=== PATIENT | female | born 1995 | race Caucasian/White ===

== ENCOUNTER 2023-04-20 20:42 | Emergency (ER) | payer OTHER, SELFPAY ==
[2023-04-20 20:45] VITALS: BP 129/85; PULSE 72; RESP 22; TEMP 37.1; O2SAT 94; BMI 31.4
--- NOTE | 2023-04-20 20:52 | ED.GENADUL1 ---
HPI - General Adult General Chief complaint: Abdominal Pain Stated complaint: FLANK PAIN Time Seen by Provider: 04/20/23 20:52 Source: patient Mode of arrival: walk-in Limitations: no limitations History of Present Illness HPI narrative: Patient presents to emergency department complaining of left flank pain. Patient states symptoms started yesterday. She was seen and evaluated at [facility] had blood work, urinalysis and CT scan which showed kidney stone per the patient. Patient was given IV fluids, Toradol, and discharged on Tylenol with codeine. She states she was feeling well and in the middle of night pain came back so she returned to [facility] they did blood work at that time and he was subsequently discharged home with a Lidoderm patch. Patient states she has been taking the Tylenol with Codeine at home and the pain has increased so she comes here for reevaluation. The patient States the pain is worse. She denies any nausea, vomiting, or diarrhea. She denies any abdominal pain, hematuria, dysuria. She denies any trauma. She denies any fever, chills, or cough. She denies any chest pain, or shortness of breath.States she had pain like this on the right side when she had a kidney stone. She denies any paresthesias, or weakness. Related Data Home Medications Medication Instructions Recorded Confirmed acetaminophen 300 mg-codeine 30 mg 1 tab PO Q8H 04/20/23 04/23/23 tablet Previous Rx's Medication Instructions Recorded ondansetron 4 mg disintegrating 4 mg PO Q8H PRN nausea and 04/20/23 tablet vomiting 5 days #10 tabs tramadol 50 mg tablet 50 mg PO TID PRN pain 3 days #10 04/20/23 tabs Allergies Allergy/AdvReac Type Severity Reaction Status Date / Time acetaminophen [From Vicodin] Allergy Mild Nausea Verified 04/23/23 05:54 hydrocodone [From Vicodin] Allergy Mild Nausea Verified 04/23/23 05:54 Review of Systems ROS Status of ROS 10 or more systems reviewed and unremarkable except as noted in history and below [facility] Medical History (Updated 04/23/23 @ 07:23 by Adrian Palumbo) Social History Smoking status: Current every day smoker Exam Narrative Exam Narrative: Nurses notes and vital signs reviewed and patient is not hypoxic. General: Nontoxic, Well-appearing and in no apparent distress. Skin: Warm, dry, no pallor noted. No Rash Head: Normocephalic, atraumatic. Neck: Supple, non-tender. Eye: Pupils are equal, round and EOMI. No scleral icterus. Ears, Nose, Mouth, and Throat: TM clear, no posterior oropharynx erythema or nasal mucosal hypertrophy, uvula is mid-line Oral mucosa is moist Cardiovascular: Regular Rate and Rhythm without murmur, gallop or rub. Respiratory: No accessory muscle use or respiratory distress. Lungs are clear to auscultation, no wheezing, rales or rhonchi Chest Wall: no tenderness Back: No midline thoracic or lumbar vertebral tenderness. +L CVA tenderness Musculoskeletal: normal ROM, no calf or popliteal tenderness, no lower extremity edema/swelling GI: Abdomen is soft, non-distended. Normal bowel sounds. No masses appreciated. No tenderness to palpation. No rebound, guarding, or rigidity noted. Neurological: A&O x4. No cranial nerve dysfunction observed. No truncal ataxia. Moves all extremities. Sensation intact. Psychiatric: Cooperative and interactive. Normal mood and affect. Constitutional Vital Signs, click to edit/add: Last Vital Signs Temp 98.8 F 04/20/23 20:45 Pulse 72 04/20/23 20:45 Resp 22 04/20/23 20:45 BP 129/85 04/20/23 20:45 Pulse Ox 94 L 04/20/23 20:45 O2 Del Method Room Air 04/20/23 20:45 Course Vital Signs Vital signs: Vital Signs Temperature 98.8 F 04/20/23 20:45 Pulse Rate 72 04/20/23 20:45 Respiratory Rate 22 04/20/23 20:45 Blood Pressure 129/85 04/20/23 20:45 Pulse Oximetry 94 L 04/20/23 20:45 Oxygen Delivery Method Room Air 04/20/23 20:45 Temperature 98.8 F 04/20/23 20:45 Pulse Rate 72 04/20/23 20:45 Respiratory Rate 22 04/20/23 20:45 Blood Pressure 129/85 04/20/23 20:45 Pulse Oximetry 94 L 04/20/23 20:45 Oxygen Delivery Method Room Air 04/20/23 20:45 Medical Decision Making MDM Narrative Medical decision making narrative: Labs studies were done and are unremarkable. Patient was given 1 L of normal saline, Toradol, and morphine. Patient's pain was better controlled. All of the results were discussed with patient. KUB was done which does not show any stones or other pathology. Discussed with the patient that the CT scan findings show a 2 mm nonobstructive renal calculus in the inferior portal of the left kidney and a tiny punctate stone in the interpolar region of the left kidney, however there is no evidence of hydronephrosis or obstructive uropathy. Her urinalysis does not show any blood. There is trace leukocyte esterase but we will send it for culture. Advised the patient treatment will be pain medication so she was given a prescription for Ultram. Patient's [facility] record was Reviewed and adequate. D-dimer was done and is negative. Chest x-ray from the abdominal series looks unremarkable. Patient is not hypoxic.Patient is advised an 8 to follow-up with her primary care doctor. At this time the patient is without objective evidence of an acute process requiring hospitalization or inpatient management. The patient has remained hemodynamically stable. No additional indication for emergent studies at this time. I answered all questions. Discussed discharge instructions including standard anticipatory guidance and what should prompt a return to the emergency department, including if they get worse are not getting better or develops any new or concerning symptoms. I've given them specific time frame in which to follow-up, and who to follow-up with. The patient demonstrates understanding. Patient is nontoxic and stable for discharge with outpatient follow-up. This note was created with the assistance of a speech recognition program. Although the intention is to generate documents that actually reflects the content of the visit, no guarantees can be provided that every mistake has been identified and corrected by editing. Medical Records Medical records reviewed: Yes I reviewed the patient's medical records Medical records narrative: [facility] charts and records were reviewed and used as part of this medical decision-making. Lab Data Lab results reviewed: Yes I reviewed the patient's lab results Labs: Lab Results 04/20/23 04/20/23 Range/Units 21:00 21:38 WBC 7.7 (4.0-11.0) 10^3/uL RBC 4.17 L (4.20-5.40) 10^6/uL Hgb 12.8 (12.0-16.0) g/dL Hct 37.1 (36.0-48.0) % MCV 89.0 (81.0-99.0) fL MCH 30.7 (26.7-34.0) pg MCHC 34.5 (29.9-35.2) g/dL RDW 12.2 (11.0-15.0) % Plt Count 286 (150-450) 10^3/uL MPV 10.1 (9.5-13.5) fL Neut % (Auto) 54.2 (43.0-75.0) % Lymph % (Auto) 35.6 (20.5-60.0) % [place] % (Auto) 7.7 (1.7-12.0) % Eos % (Auto) 1.8 (0.9-7.0) % Baso % (Auto) 0.3 (0.2-2.0) % Neut # (Auto) 4.2 (1.4-6.5) 10^3/uL Lymph # (Auto) 2.7 (1.2-3.8) 10^3/uL [place] # (Auto) 0.6 (0.3-0.8) 10^3/uL Eos # (Auto) 0.1 (0.0-0.7) 10^3/uL Baso # (Auto) 0.0 (0.0-0.1) 10^3/uL Abs Immat Gran (auto) 0.03 (0.00-0.03) 10^3/uL Imm/Tot Granulo (auto) 0.4 (0.0-0.5) % D-Dimer <0.19 (<=0.59) mg/L FEU Sodium 139 (136-145) mmol/L Potassium 3.9 (3.5-5.1) mmol/L Chloride 106 (98-107) mmol/L Carbon Dioxide 25.5 (21.0-32.0) mmol/L Anion Gap 11.4 BUN 6.0 L (7.0-18.0) mg/dL Creatinine 0.71 (0.55-1.02) mg/dL Est GFR ( Amer) >60 (>=60) Est GFR (Non-Af Amer) >60 (>=60) BUN/Creatinine Ratio 8.5 Glucose 95 (74-106) mg/dL Calcium 8.6 (8.5-10.1) mg/dL Total Bilirubin 0.4 (0.2-1.0) mg/dL AST 9 L (15-37) U/L ALT 15 (14-59) U/L Alkaline Phosphatase 57 (46-116) U/L Total Protein 6.8 (6.4-8.2) g/dL Albumin 3.9 (3.4-5.0) g/dL Globulin 2.9 g/dL Albumin/Globulin Ratio 1.3 Lipase 117.0 (73.0-393.0) U/L Urine Color Lt. yellow (YELLOW) Urine Clarity Clear (CLEAR) Urine pH 6.5 (5.0-9.0) Ur Specific [place] <=1.005 A (1.005-1.025) Urine Protein Negative (NEG/TRACE) mg/dL Urine Glucose (UA) Negative (NEGATIVE) mg/dL Urine Ketones Negative (NEGATIVE) mg/dL Urine Occult Blood Negative (NEGATIVE) Urine Nitrite Negative (NEGATIVE) Urine Bilirubin Negative (NEGATIVE) Urine Urobilinogen 0.2 (0.2-1.0) EU/dL Ur Leukocyte Esterase Trace A (NEGATIVE) Urine RBC 0-2 (0-2) #/HPF Urine WBC 0-2 A (NONE SEEN) #/HPF Ur Squamous Epith Cells Few A (NONE/RARE) #/LPF Urine Crystals None seen (None Seen) #/HPF Urine Bacteria None seen (NONE SEEN) #/HPF Urine Casts None seen (NONE SEEN) #/LPF Urine Mucus None seen (NONE SEEN) Ur Culture Indicated? No Discharge Plan Discharge Chief Complaint: Abdominal Pain Clinical Impression: Acute left flank pain Patient Disposition: Home, Self-Care Time of Disposition Decision: 23:18 Condition: Good Mode of Transportation: Private Vehicle Prescriptions / Home Meds: New tramadol 50 mg tablet 50 mg PO TID PRN (Reason: pain) 3 Days Qty: 10 0RF ondansetron 4 mg tablet,disintegrating 4 mg PO Q8H PRN (Reason: nausea and vomiting) 5 Days Qty: 10 0RF No Action acetaminophen-codeine 300-30 mg tablet 1 tab PO Q8H Instructions: Flank Pain (ED) Additional Instructions: do not take tylenol #3 when taking ultram. Stand Alone Forms: Portal Instructions Referrals: ALMITA APARICIO [Primary Care Provider] - 1 week Discharge Date/Time: 04/20/23 23:56
[2023-04-20 21:10] LABS: Basophils Percent Auto 0.3 % (0.2-2.0); Eosinophils Absolute Auto 0.1 10^3/uL (0.0-0.7); Eosinophils Percent Auto 1.8 % (0.9-7.0); Hematocrit 37.1 % (36.0-48.0); Hemoglobin 12.8 g/dL (12.0-16.0); Immature Granulocytes Abs Auto 0.03 10^3/uL (0.00-0.03); Immature Granulocytes Pct Auto 0.4 % (0.0-0.5); Lymphocytes Absolute Auto 2.7 10^3/uL (1.2-3.8); Lymphocytes Percent Auto 35.6 % (20.5-60.0); Mean Corpuscular HGB Conc 34.5 g/dL (29.9-35.2); Mean Corpuscular Hemoglobin 30.7 pg (26.7-34.0); Mean Platelet Volume 10.1 fL (9.5-13.5); Monocytes Absolute Auto 0.6 10^3/uL (0.3-0.8); Monocytes Percent Auto 7.7 % (1.7-12.0); Neutrophils Absolute Auto 4.2 10^3/uL (1.4-6.5); Neutrophils Percent Auto 54.2 % (43.0-75.0); Platelet Count 286 10^3/uL (150-450); Red Blood Count 4.17 10^6/uL (4.20-5.40); Red Cell Distribution Width 12.2 % (11.0-15.0); White Blood Count 7.7 10^3/uL (4.0-11.0)
[2023-04-20] MEDS: 0.9 % SODIUM CHLORIDE 1,000 ML 1000 ML IV (21:16)
[2023-04-20] MEDS: 0.9 % SODIUM CHLORIDE 1,000 ML 999 ML IV (21:17)
[2023-04-20] MEDS: KETOROLAC TROMETHAMINE 30 MG/ML VIAL IVP (21:17)
[2023-04-20 21:19] LABS: Alanine Aminotransferase 15 U/L (14-59); Albumin Globulin Ratio 1.3; Albumin Level 3.9 g/dL (3.4-5.0); Alkaline Phosphatase 57 U/L (46-116); Anion Gap 11.4; Aspartate Amino Transferase 9 U/L (15-37); BUN Creatinine Ratio 8.5; Bilirubin Total 0.4 mg/dL (0.2-1.0); Calcium 8.6 mg/dL (8.5-10.1); Carbon Dioxide 25.5 mmol/L (21.0-32.0); Chloride 106 mmol/L (98-107); Estimated GFR (African America >60 (>=60); Estimated GFR (Non-African Ame >60 (>=60); Globulin 2.9 g/dL; Glucose 95 mg/dL (74-106); Potassium 3.9 mmol/L (3.5-5.1); Sodium 139 mmol/L (136-145); Total Protein 6.8 g/dL (6.4-8.2)
[2023-04-20] MEDS: MORPHINE SULFATE 4 MG/ML VIAL IV (21:52)
[2023-04-20 21:53] LABS: Bilirubin Urine NEGATIVE (NEGATIVE); Blood Urine NEGATIVE (NEGATIVE); Clarity Urine CLEAR (CLEAR); Color Urine LT. YELLOW (YELLOW); Glucose Urine UA NEGATIVE (NEGATIVE); Ketones Urine NEGATIVE (NEGATIVE); Leukocyte Esterase Urine TRACE (NEGATIVE); Nitrite Urine NEGATIVE (NEGATIVE); Protein Urine NEGATIVE (NEG/TRACE); Specific Gravity Urine <=1.005 (1.005-1.025); Urobilinogen Urine 0.2 EU/dL (0.2-1.0); pH Urine 6.5 (5.0-9.0)
[2023-04-20 22:01] LABS: D Dimer <0.19 mg/L FEU (<=0.59)
[2023-04-20 22:01] LABS: Urine Microscopic Indicated YES
--- NOTE | 2023-04-20 22:05 | XR_ITS ---
The [address] [address] Patient Name: LUKE CALDERON MRN: [id number] date: 1995 Sex: F Assigned Patient Location: ER Current Patient Location: ED.MAIN Accession/Order Number: [id number] Exam Date: 04/20/2023 22:50 Report Date: 04/20/2023 23:24 At the request of: IMANI TALAVERA Procedure: XR acute abdomen series EXAM: XR acute abdomen series HISTORY: Abdominal pain and nausea COMPARISON: None. TECHNIQUE: PA chest and 2 views of the abdomen FINDINGS: The lung parenchyma is free of consolidation or infiltrate. No pneumothorax or pleural effusion. The cardiac, mediastinal and hilar contours are normal. The bowel gas pattern is nonobstructed. Stool burden is normal. No visualized intra-abdominal calcification. IUD within the deep pelvis The visualized osseous structures are normal. XR/XR acute abdomen series IMPRESSION: No visualized abnormality Electronically authenticated by: RAÚL JEFFRIES Date: 04/20/2023 23:24
[2023-04-20 22:07] LABS: Bacteria Urine NONE SEEN #/HPF (NONE SEEN); Cast Seen? NONE SEEN #/LPF (NONE SEEN); Crystals Seen? None Seen #/HPF (None Seen); Mucus Urine NONE SEEN (NONE SEEN); RBC Urine 0-2 #/HPF (0-2); Squamous Epithelial Cell Urine FEW #/LPF (NONE/RARE); Urine Culture Indicated NO; WBC Urine 0-2 #/HPF (NONE SEEN)
[2023-04-20] MEDS: TRAMADOL HCL 50 MG TABLET PO (23:46)
== END 2023-04-20 23:56 | disposition home or self-care (01) ==
PROVIDERS: Emergency Provider Emergency Medicine; PCP Family Medicine
DX: R10.9 Unspecified abdominal pain (principal); F17.210 Nicotine dependence, cigarettes, uncomplicated
CPT/HCPCS: 36415; 74022; 80053; 81001; 83690; 85025; 85378; 96374; 96375; 99285

== ENCOUNTER 2023-04-23 05:44 | Emergency (ER) | payer OTHER, SELFPAY ==
[2023-04-23 05:49] VITALS: BP 90/60; PULSE 69; RESP 18; TEMP 36.6; O2SAT 97; BMI 31.3
--- NOTE | 2023-04-23 06:02 | ED_ITS ---
Documented by User: Stephen Carl MD 04/24/23 06:45 HPI - General Adult General Chief complaint: Back Pain/Injury Stated complaint: FLANK PAIN, LEFT SIDE Time Seen by Provider: 04/23/23 06:02 Source: patient Mode of arrival: walk-in Limitations: no limitations History of Present Illness HPI narrative: patient states she was found to have left sided kidney stones this past weekend. was seen at [facility] and then here the next day. now presents here this AM complaining of pain again and mild nausea. No fever. Onset (ago): day(s) Related Data Home Medications Medication Instructions Recorded Confirmed acetaminophen 300 mg-codeine 30 mg 1 tab PO Q8H 04/20/23 04/23/23 tablet Previous Rx's Medication Instructions Recorded ondansetron 4 mg disintegrating 4 mg PO Q8H PRN nausea and 04/20/23 tablet vomiting 5 days #10 tabs tramadol 50 mg tablet 50 mg PO TID PRN pain 3 days #10 04/20/23 tabs tramadol 50 mg tablet 50 mg PO TID PRN pain 3 days #10 04/23/23 tabs Allergies Allergy/AdvReac Type Severity Reaction Status Date / Time acetaminophen [From Vicodin] Allergy Mild Nausea Verified 04/23/23 05:54 hydrocodone [From Vicodin] Allergy Mild Nausea Verified 04/23/23 05:54 Review of Systems ROS Status of ROS 10 or more systems reviewed and unremarkable except as noted in history and below [facility] Medical History (Updated 04/23/23 @ 07:23 by Adrian Palumbo) Social History Smoking status: Current every day smoker Exam Constitutional Vital Signs, click to edit/add: Last Vital Signs Temp 97.8 F 04/23/23 09:48 Pulse 62 04/23/23 09:48 Resp 16 04/23/23 09:48 BP 104/67 04/23/23 09:48 Pulse Ox 100 04/23/23 09:48 O2 Del Method Room Air 04/23/23 09:48 Documenting provider has reviewed patient's vital signs: yes Common normals: no apparent distress (patient rocking back and forth complaining of left flank pain ), average body habitus, oriented x3, healthy appearing and alert Eye Common normals: EOMs intact bilaterally and conjunctivae normal Respiratory Common normals: normal respiratory effort, no retractions, no use of accessory muscles and clear to auscultation bilaterally GI Common normals: Normal to inspection, nondistended, normoactive bowel sounds present Other: left flank tenderness Extremity Common normals: normal to inspection and full ROM Neuro Common normals: oriented x3, CN's II-XII intact bilaterally, moves all extremities and no focal motor deficits Psych Appearance: grossly normal Course Vital Signs Vital signs: Vital Signs Temperature 98 F 04/23/23 05:49 Pulse Rate 69 04/23/23 05:49 Respiratory Rate 18 04/23/23 05:49 Blood Pressure 90/60 04/23/23 05:49 Pulse Oximetry 97 04/23/23 05:49 Oxygen Delivery Method Room Air 04/23/23 05:49 Temperature 97.8 F 04/23/23 09:48 Pulse Rate 62 04/23/23 09:48 Respiratory Rate 16 04/23/23 09:48 Blood Pressure 104/67 04/23/23 09:48 Pulse Oximetry 100 04/23/23 09:48 Oxygen Delivery Method Room Air 04/23/23 09:48 Medical Decision Making MDM Narrative Medical decision making narrative: patient presents complaining of left flank pain. States she was seen at [facility] this past weekend and found to have kidney stones. States past history of stones. IV established and patient hydrated with normal saline. labs ordered as well as medications for pain. CT report from [facility] obtained and reads the right kidney , the bilateral ureters and urinary blader appears unremarkable. There is a 2mm nonobstructive renal calculus inferior pole left kidney. Labs have returned as normal so far. UA result pending. Care transferred to oncoming physician at change of shift Lab Data Labs: Lab Results 04/23/23 Range/Units 06:00 WBC 6.8 (4.0-11.0) 10^3/uL RBC 3.87 L (4.20-5.40) 10^6/uL Hgb 12.0 (12.0-16.0) g/dL Hct 34.6 L (36.0-48.0) % MCV 89.4 (81.0-99.0) fL MCH 31.0 (26.7-34.0) pg MCHC 34.7 (29.9-35.2) g/dL RDW 12.1 (11.0-15.0) % Plt Count 259 (150-450) 10^3/uL MPV 10.0 (9.5-13.5) fL Neut % (Auto) 54.5 (43.0-75.0) % Lymph % (Auto) 32.6 (20.5-60.0) % [place] % (Auto) 10.0 (1.7-12.0) % Eos % (Auto) 2.1 (0.9-7.0) % Baso % (Auto) 0.4 (0.2-2.0) % Neut # (Auto) 3.7 (1.4-6.5) 10^3/uL Lymph # (Auto) 2.2 (1.2-3.8) 10^3/uL [place] # (Auto) 0.7 (0.3-0.8) 10^3/uL Eos # (Auto) 0.1 (0.0-0.7) 10^3/uL Baso # (Auto) 0.0 (0.0-0.1) 10^3/uL Abs Immat Gran (auto) 0.03 (0.00-0.03) 10^3/uL Imm/Tot Granulo (auto) 0.4 (0.0-0.5) % Sodium 138 (136-145) mmol/L Potassium 3.6 (3.5-5.1) mmol/L Chloride 103 (98-107) mmol/L Carbon Dioxide 25.3 (21.0-32.0) mmol/L Anion Gap 13.3 BUN 11.0 (7.0-18.0) mg/dL Creatinine 0.75 (0.55-1.02) mg/dL Est GFR ( Amer) >60 (>=60) Est GFR (Non-Af Amer) >60 (>=60) BUN/Creatinine Ratio 14.7 Glucose 101 (74-106) mg/dL Calcium 8.6 (8.5-10.1) mg/dL Urine Color Lt. yellow (YELLOW) Urine Clarity Clear (CLEAR) Urine pH 7.5 (5.0-9.0) Ur Specific [place] 1.010 (1.005-1.025) Urine Protein Negative (NEG/TRACE) mg/dL Urine Glucose (UA) Negative (NEGATIVE) mg/dL Urine Ketones Negative (NEGATIVE) mg/dL Urine Occult Blood Negative (NEGATIVE) Urine Nitrite Negative (NEGATIVE) Urine Bilirubin Negative (NEGATIVE) Urine Urobilinogen 0.2 (0.2-1.0) EU/dL Ur Leukocyte Esterase Negative (NEGATIVE) Urine HCG, Qual Negative (NEGATIVE) Discharge Plan Discharge Chief Complaint: Back Pain/Injury Clinical Impression: Acute left flank pain Patient Disposition: Home, Self-Care Time of Disposition Decision: 09:31 Condition: Good Mode of Transportation: Private Vehicle Prescriptions / Home Meds: New tramadol 50 mg tablet 50 mg PO TID PRN (Reason: pain) 3 Days Qty: 10 0RF No Action acetaminophen-codeine 300-30 mg tablet 1 tab PO Q8H tramadol 50 mg tablet 50 mg PO TID PRN (Reason: pain) 3 Days Qty: 10 0RF ondansetron 4 mg tablet,disintegrating 4 mg PO Q8H PRN (Reason: nausea and vomiting) 5 Days Qty: 10 0RF Instructions: Flank Pain (ED) Stand Alone Forms: Portal Instructions Referrals: ALMITA APARICIO [Primary Care Provider] - 1 week Discharge Date/Time: 04/23/23 09:52 Documented by User: Gail Salcido MD 04/23/23 09:36 HPI - General Adult General Chief complaint: Back Pain/Injury Stated complaint: FLANK PAIN, LEFT SIDE Time Seen by Provider: 04/23/23 06:02 Related Data Home Medications Medication Instructions Recorded Confirmed acetaminophen 300 mg-codeine 30 mg 1 tab PO Q8H 04/20/23 04/23/23 tablet Previous Rx's Medication Instructions Recorded ondansetron 4 mg disintegrating 4 mg PO Q8H PRN nausea and 04/20/23 tablet vomiting 5 days #10 tabs tramadol 50 mg tablet 50 mg PO TID PRN pain 3 days #10 04/20/23 tabs tramadol 50 mg tablet 50 mg PO TID PRN pain 3 days #10 04/23/23 tabs Allergies Allergy/AdvReac Type Severity Reaction Status Date / Time acetaminophen [From Vicodin] Allergy Mild Nausea Verified 04/23/23 05:54 hydrocodone [From Vicodin] Allergy Mild Nausea Verified 04/23/23 05:54 [facility] Medical History (Updated 04/23/23 @ 07:23 by Adrian Palumbo) Social History Smoking status: Current every day smoker Exam Constitutional Vital Signs, click to edit/add: Last Vital Signs Temp 97.8 F 04/23/23 09:48 Pulse 62 04/23/23 09:48 Resp 16 04/23/23 09:48 BP 104/67 04/23/23 09:48 Pulse Ox 100 04/23/23 09:48 O2 Del Method Room Air 04/23/23 09:48 Course Vital Signs Vital signs: Vital Signs Temperature 98 F 04/23/23 05:49 Pulse Rate 69 04/23/23 05:49 Respiratory Rate 18 04/23/23 05:49 Blood Pressure 90/60 04/23/23 05:49 Pulse Oximetry 97 04/23/23 05:49 Oxygen Delivery Method Room Air 04/23/23 05:49 Temperature 97.8 F 04/23/23 09:48 Pulse Rate 62 04/23/23 09:48 Respiratory Rate 16 04/23/23 09:48 Blood Pressure 104/67 04/23/23 09:48 Pulse Oximetry 100 04/23/23 09:48 Oxygen Delivery Method Room Air 04/23/23 09:48 Medical Decision Making MDM Narrative Medical decision making narrative: patient presents complaining of left flank pain. States she was seen at [facility] this past weekend and found to have kidney stones. States past history of stones. IV established and patient hydrated with normal saline. labs ordered as well as medications for pain. CT report from [facility] obtained and reads the right kidney , the bilateral ureters and urinary blader appears unremarkable. There is a 2mm nonobstructive renal calculus inferior pole left kidney. Labs have returned as normal so far. UA result pending. Care transferred to oncoming physician at change of shift Patient signed out to me by Dr. Carl awaiting labs. Patient was seen and evaluated by me. Patient is nontoxic and in no distress. Patient stated she was not able to get the tramadol prescription filled because of the Tylenol with codeine. However she will be able to get it filled today. However she has lost the prescription. She was given an additional 4 mg of morphine in the emergency department her pain is completely resolved. Urinalysis is normal. 2 the patient pain is not related to uretterolithiasis. She understands and she'll follow up with primary care doctor. At this time the patient is without objective evidence of an acute process requiring hospitalization or inpatient management. The patient has remained hemodynamically stable. No additional indication for emergent studies at this time. I answered all questions. Discussed discharge instructions including standard anticipatory guidance and what should prompt a return to the emergency department, including if they get worse are not getting better or develops any new or concerning symptoms. I've given them specific time frame in which to follow-up, and who to follow-up with. The patient demonstrates understanding. Patient is nontoxic and stable for discharge with outpatient follow-up. This note was created with the assistance of a speech recognition program. Although the intention is to generate documents that actually reflects the content of the visit, no guarantees can be provided that every mistake has been identified and corrected by editing. Medical Records Medical records reviewed: Yes I reviewed the patient's medical records Lab Data Lab results reviewed: Yes I reviewed the patient's lab results Labs: Lab Results 04/23/23 Range/Units 06:00 WBC 6.8 (4.0-11.0) 10^3/uL RBC 3.87 L (4.20-5.40) 10^6/uL Hgb 12.0 (12.0-16.0) g/dL Hct 34.6 L (36.0-48.0) % MCV 89.4 (81.0-99.0) fL MCH 31.0 (26.7-34.0) pg MCHC 34.7 (29.9-35.2) g/dL RDW 12.1 (11.0-15.0) % Plt Count 259 (150-450) 10^3/uL MPV 10.0 (9.5-13.5) fL Neut % (Auto) 54.5 (43.0-75.0) % Lymph % (Auto) 32.6 (20.5-60.0) % [place] % (Auto) 10.0 (1.7-12.0) % Eos % (Auto) 2.1 (0.9-7.0) % Baso % (Auto) 0.4 (0.2-2.0) % Neut # (Auto) 3.7 (1.4-6.5) 10^3/uL Lymph # (Auto) 2.2 (1.2-3.8) 10^3/uL [place] # (Auto) 0.7 (0.3-0.8) 10^3/uL Eos # (Auto) 0.1 (0.0-0.7) 10^3/uL Baso # (Auto) 0.0 (0.0-0.1) 10^3/uL Abs Immat Gran (auto) 0.03 (0.00-0.03) 10^3/uL Imm/Tot Granulo (auto) 0.4 (0.0-0.5) % Sodium 138 (136-145) mmol/L Potassium 3.6 (3.5-5.1) mmol/L Chloride 103 (98-107) mmol/L Carbon Dioxide 25.3 (21.0-32.0) mmol/L Anion Gap 13.3 BUN 11.0 (7.0-18.0) mg/dL Creatinine 0.75 (0.55-1.02) mg/dL Est GFR ( Amer) >60 (>=60) Est GFR (Non-Af Amer) >60 (>=60) BUN/Creatinine Ratio 14.7 Glucose 101 (74-106) mg/dL Calcium 8.6 (8.5-10.1) mg/dL Urine Color Lt. yellow (YELLOW) Urine Clarity Clear (CLEAR) Urine pH 7.5 (5.0-9.0) Ur Specific [place] 1.010 (1.005-1.025) Urine Protein Negative (NEG/TRACE) mg/dL Urine Glucose (UA) Negative (NEGATIVE) mg/dL Urine Ketones Negative (NEGATIVE) mg/dL Urine Occult Blood Negative (NEGATIVE) Urine Nitrite Negative (NEGATIVE) Urine Bilirubin Negative (NEGATIVE) Urine Urobilinogen 0.2 (0.2-1.0) EU/dL Ur Leukocyte Esterase Negative (NEGATIVE) Urine HCG, Qual Negative (NEGATIVE) Discharge Plan Discharge Chief Complaint: Back Pain/Injury Clinical Impression: Acute left flank pain Patient Disposition: Home, Self-Care Time of Disposition Decision: 09:31 Condition: Good Mode of Transportation: Private Vehicle Prescriptions / Home Meds: New tramadol 50 mg tablet 50 mg PO TID PRN (Reason: pain) 3 Days Qty: 10 0RF No Action acetaminophen-codeine 300-30 mg tablet 1 tab PO Q8H tramadol 50 mg tablet 50 mg PO TID PRN (Reason: pain) 3 Days Qty: 10 0RF ondansetron 4 mg tablet,disintegrating 4 mg PO Q8H PRN (Reason: nausea and vomiting) 5 Days Qty: 10 0RF Instructions: Flank Pain (ED) Stand Alone Forms: Portal Instructions Referrals: ALMITA APARICIO [Primary Care Provider] - 1 week Discharge Date/Time: 04/23/23 09:52
[2023-04-23 06:12] LABS: Basophils Percent Auto 0.4 % (0.2-2.0); Eosinophils Absolute Auto 0.1 10^3/uL (0.0-0.7); Eosinophils Percent Auto 2.1 % (0.9-7.0); Hematocrit 34.6 % (36.0-48.0); Immature Granulocytes Abs Auto 0.03 10^3/uL (0.00-0.03); Immature Granulocytes Pct Auto 0.4 % (0.0-0.5); Lymphocytes Absolute Auto 2.2 10^3/uL (1.2-3.8); Lymphocytes Percent Auto 32.6 % (20.5-60.0); Mean Corpuscular HGB Conc 34.7 g/dL (29.9-35.2); Mean Corpuscular Volume 89.4 fL (81.0-99.0); Monocytes Absolute Auto 0.7 10^3/uL (0.3-0.8); Neutrophils Absolute Auto 3.7 10^3/uL (1.4-6.5); Neutrophils Percent Auto 54.5 % (43.0-75.0); Platelet Count 259 10^3/uL (150-450); Red Blood Count 3.87 10^6/uL (4.20-5.40); Red Cell Distribution Width 12.1 % (11.0-15.0); White Blood Count 6.8 10^3/uL (4.0-11.0)
[2023-04-23 06:22] LABS: Anion Gap 13.3; BUN Creatinine Ratio 14.7; Calcium 8.6 mg/dL (8.5-10.1); Carbon Dioxide 25.3 mmol/L (21.0-32.0); Chloride 103 mmol/L (98-107); Estimated GFR (African America >60 (>=60); Estimated GFR (Non-African Ame >60 (>=60); Glucose 101 mg/dL (74-106); Potassium 3.6 mmol/L (3.5-5.1); Sodium 138 mmol/L (136-145)
[2023-04-23] MEDS: 0.9 % SODIUM CHLORIDE 1,000 ML 999 ML IV (06:25)
[2023-04-23] MEDS: ORPHENADRINE 60 MG/ 2 ML VIAL IV (06:25)
[2023-04-23] MEDS: MORPHINE SULFATE 4 MG/ML VIAL IV ×2 (06:25→08:33)
[2023-04-23] MEDS: KETOROLAC TROMETHAMINE 30 MG/ML VIAL IM (06:33)
[2023-04-23 07:12] VITALS: BP 125/68; PULSE 55; RESP 16; O2SAT 99
[2023-04-23 07:57] LABS: Bilirubin Urine NEGATIVE (NEGATIVE); Blood Urine NEGATIVE (NEGATIVE); Clarity Urine CLEAR (CLEAR); Color Urine LT. YELLOW (YELLOW); Glucose Urine UA NEGATIVE (NEGATIVE); Ketones Urine NEGATIVE (NEGATIVE); Leukocyte Esterase Urine NEGATIVE (NEGATIVE); Nitrite Urine NEGATIVE (NEGATIVE); Protein Urine NEGATIVE (NEG/TRACE); Urobilinogen Urine 0.2 EU/dL (0.2-1.0); pH Urine 7.5 (5.0-9.0)
[2023-04-23 07:58] LABS: Urine Microscopic Indicated NO
--- NOTE | 2023-04-23 08:09 | XR_ITS ---
The [address] [address] Patient Name: LUKE CALDERON MRN: [id number] date: 1995 Sex: F Assigned Patient Location: ER Current Patient Location: ED.MAIN Accession/Order Number: [id number] Exam Date: 04/23/2023 09:00 Report Date: 04/23/2023 09:35 At the request of: IMANI TALAVERA Procedure: XR acute abdomen series EXAM: XR acute abdomen series HISTORY: abd pain COMPARISON: 04/20/2023. TECHNIQUE: Chest X-ray, 1 view. FINDINGS: Support devices: None. Lungs/pleura: No consolidation, effusion, or pneumothorax. Heart and mediastinum: Normal contours. Bones: No acute abnormality identified. Bowel: Unremarkable bowel gas pattern. No bowel dilatation. No gross pneumoperitoneum on exam of limited sensitivity for that finding. Moderate volume proximal colonic stool. An IUD is noted. XR/XR acute abdomen series IMPRESSION: No active disease. Moderate volume proximal colonic stool. No radiographic evidence of nephrolithiasis. Electronically authenticated by: TATIANNA ORANTES Date: 04/23/2023 09:35
[2023-04-23 09:07] LABS: HCG Qualitative Urine* NEGATIVE (NEGATIVE)
[2023-04-23 09:48] VITALS: BP 104/67; PULSE 62; RESP 16; TEMP 36.6; O2SAT 100
== END 2023-04-23 09:52 | disposition home or self-care (01) ==
PROVIDERS: Emergency Provider Internal Medicine; PCP Family Medicine
DX: R10.9 Unspecified abdominal pain (principal); Z87.442 Personal history of urinary calculi; F17.210 Nicotine dependence, cigarettes, uncomplicated
CPT/HCPCS: 36415; 74022; 80048; 81003; 84703; 85025; 96372; 96374; 96375; 96376; 99285